=== PATIENT | male | born 2000 | race African-American/Black ===

== ENCOUNTER 2018-03-09 22:46 | Emergency (ER) | payer MEDICAID ==
[~2018-03-09] VITALS: Ht 193 cm; Wt 82.0 kg
[2018-03-10] MEDS ORDERED: BACITRACIN ZINC OINT UDPKT TOP ONE (01:30)
[2018-03-10 02:05] VITALS: BP 115/68
== END 2018-03-10 02:05 | disposition home or self-care (01) ==
LOC: ER 22:46
DX: S80.212A Abrasion, left knee, initial encounter (principal); S60.512A Abrasion of left hand, initial encounter; S60.511A Abrasion of right hand, initial encounter; X95.9XXA Assault by unspecified firearm discharge, initial encounter; W01.0XXA Fall on same level from slipping, tripping and stumbling without subsequent striking against object, initial encounter; Y93.89 Activity, other specified; Y92.89 Other specified places as the place of occurrence of the external cause
CPT/HCPCS: 99282

== ENCOUNTER 2018-04-10 14:02 | Emergency (ER) | payer MEDICAID ==
[~2018-04-10] VITALS: Ht 193 cm; Wt 83.0 kg
[2018-04-10] MEDS ORDERED: HYDROCODONE/ACETAMINOPHEN 5/325MG TABLET PO ONE (14:30)
[2018-04-10] MEDS ORDERED: LIDOCAINE HCL 1% 20ML VIAL (Pyxis) INJ INFIL ONE (15:45)
[2018-04-10] MEDS ORDERED: BACITRACIN ZINC OINT UDPKT TOP ONE (15:45)
[2018-04-10 16:49] VITALS: BP 128/78
== END 2018-04-10 17:06 | disposition home or self-care (01) ==
LOC: ER 14:40
DX: S01.312A Laceration without foreign body of left ear, initial encounter (principal); S00.83XA Contusion of other part of head, initial encounter; J45.909 Unspecified asthma, uncomplicated; F12.10 Cannabis abuse, uncomplicated; W22.8XXA Striking against or struck by other objects, initial encounter; Y93.89 Activity, other specified; Y92.89 Other specified places as the place of occurrence of the external cause; Y99.8 Other external cause status
CPT/HCPCS: 12011; 70486; 70490; 99284; J3490

== ENCOUNTER 2024-12-19 23:53 | Emergency (ER) | payer MEDICAID ==
[~2024-12-19] VITALS: Ht 193 cm; Wt 82.1 kg
[2024-12-19 23:58] VITALS: O2SAT 99
[2024-12-20] MEDS ORDERED: DOXY100C5 MT (01:18)
[2024-12-20 01:44] VITALS: BP 123/86; PULSE 82; RESP 16; TEMP 36.7; O2SAT 99
[2024-12-20] MEDS: CEFTRIAXONE SODIUM 500MG VIAL IM ONE (01:50)
[2024-12-21 15:10] LABS: CHLAMYDIA TRACHOMATIS NAA Negative (Negative); NEISSERIA GONORRHOEAE NAA Negative (Negative)
== END 2024-12-20 01:51 | disposition home or self-care (01) ==
LOC: ER 23:53
DX: J45.909 Unspecified asthma, uncomplicated (principal); F12.90 Cannabis use, unspecified, uncomplicated; Z11.3 Encounter for screening for infections with a predominantly sexual mode of transmission; Z20.2 Contact with and (suspected) exposure to infections with a predominantly sexual mode of transmission; Z79.899 Other long term (current) drug therapy
CPT/HCPCS: 87491; 87591; 99283